=== PATIENT | male | born 1970 | race African-American/Black ===

== ENCOUNTER → 2022-02-27 | Outpatient (CLI) | payer OTHER ==
[2022-02-27 12:30] LABS: Basophils % (auto) 0.5 % (0.0-2.0); Eosinophils # (auto) 0.2 10 ^3/uL (0-0.8); Mean Corpuscular Hemoglobin 21.3 pg (28.0-32.0); Monocytes # (auto) 0.8 10 ^3/uL (0-1.3); Neutrophils % (auto) 52.8 % (37.0-80.0)
[2022-02-27 12:31] LABS: Basophils # (auto) 0 10 ^3/uL (0-0.2); Eosinophils % (auto) 1.9 % (0.0-7.0); Hemoglobin 13.8 g/dL (13.5-17.5); Lymphocytes # (auto) 3.5 10 ^3/uL (0.4-5.4); Lymphocytes % (auto) 36.3 % (10.0-50.0); Mean Corpuscular Hgb Conc. 30.6 g/dL (32.0-36.0); Mean Corpuscular Volume 69.8 fL (80.0-100.0); Monocytes % (auto) 8.5 % (0.0-12.0); Neutrophils # (auto) 5.1 10 ^3/uL (1.6-8.6); Nucleated Red Blood Cells % 0.1 %; Red Blood Cells 6.45 10^6/uL (4.5-5.90); White Blood Cell 9.6 10^3/uL (4.4-10.8)
[2022-02-27 13:30] LABS: Potassium 4.2 mmol/L (3.5-5.1)
[2022-02-27 13:34] LABS: Albumin 3.7 g/dL (3.4-5.0); BUN/Creatinine Ratio 10.6; Calcium 9.3 mg/dL (8.5-10.1)
[2022-02-27 13:37] LABS: Bilirubin, Total 0.7 mg/dL (0.2-1.0); Total Protein 7.5 g/dL (6.4-8.2)
== END | disposition home or self-care (01) ==
LOC: LAB 12:12
PROVIDERS: ATTEND Student in an Organized Health Care Education/Training Program
DX: Z00.00 Encounter for general adult medical examination without abnormal findings (principal); Z12.11 Encounter for screening for malignant neoplasm of colon; I10 Essential (primary) hypertension; R73.03 Prediabetes
CPT/HCPCS: 36415; 80053; 80061; 83036; 85025

== ENCOUNTER → 2022-03-12 | Outpatient (CLI) | payer OTHER | END | disposition home or self-care (01) | LOC: LAB 11:28 | PROVIDERS: ATTEND Student in an Organized Health Care Education/Training Program | DX: Z00.00 Encounter for general adult medical examination without abnormal findings (principal); Z12.11 Encounter for screening for malignant neoplasm of colon; I10 Essential (primary) hypertension; R73.03 Prediabetes | CPT/HCPCS: 82274 ==

== ENCOUNTER → 2022-09-11 | Outpatient (CLI) | payer OTHER ==
[2022-09-11 12:56] LABS: Calcium 8.9 mg/dL (8.5-10.1); Potassium 4.1 mmol/L (3.5-5.1)
[2022-09-11 12:58] LABS: BUN/Creatinine Ratio 11.4
== END | disposition home or self-care (01) ==
LOC: LAB 12:00
PROVIDERS: ATTEND Student in an Organized Health Care Education/Training Program
DX: E11.9 Type 2 diabetes mellitus without complications (principal); I10 Essential (primary) hypertension; E66.01 Morbid (severe) obesity due to excess calories
CPT/HCPCS: 36415; 80048; 82570; 83036

== ENCOUNTER → 2024-06-26 | Outpatient (CLI) | payer OTHER ==
[2024-06-26 15:01] LABS: Urine Bacteria None Seen /hpf (None Seen)
[2024-06-26 15:14] LABS: Basophils # (auto) 0.1 10 ^3/uL (0-0.2); Basophils % (auto) 0.8 % (0.0-2.0); Hemoglobin 14.8 g/dL (13.5-17.5); Neutrophils # (auto) 3.9 10 ^3/uL (1.6-8.6); Neutrophils % (auto) 47.9 % (37.0-80.0); Nucleated Red Blood Cells % 0.1 %; White Blood Cell 8.1 10^3/uL (4.4-10.8)
[2024-06-26 15:16] LABS: Eosinophils # (auto) 0.1 10 ^3/uL (0-0.8); Eosinophils % (auto) 1.8 % (0.0-7.0); Lymphocytes # (auto) 3.4 10 ^3/uL (0.4-5.4); Lymphocytes % (auto) 41.6 % (10.0-50.0); Mean Corpuscular Hemoglobin 22.4 pg (28.0-32.0); Mean Corpuscular Hgb Conc. 32.1 g/dL (32.0-36.0); Mean Corpuscular Volume 69.6 fL (80.0-100.0); Monocytes # (auto) 0.6 10 ^3/uL (0-1.3); Monocytes % (auto) 7.9 % (0.0-12.0); Platelet Count (auto) 238 10^3/uL (140-450); Red Blood Cells 6.61 10^6/uL (4.5-5.90); Red Cell Distribution Width 13.8 % (11.8-14.3)
[2024-06-26 15:24] LABS: Urine Blood TRACE /uL (Negative); Urine Clarity Clear (Clear); Urine Color Light-Yellow (Yellow); Urine Mucus FEW (None Seen); Urine Protein, UAD Negative (Negative); Urine Specific Gravity 1.016 (1.001-1.035); Urine Urobilinogen Normal (Negative); Urine WBC <1 /hpf (0 - 3); Urine pH 5.5 (5.0-9.0)
[2024-06-26 15:26] LABS: Prostate Specific Antigen 1.18 ng/mL (0.0-4.0)
[2024-06-26 15:28] LABS: Alanine Aminotransferase 19 U/L (7-40); Albumin 4.5 g/dL (3.2-4.8); Alkaline Phosphatase 96 U/L (46-116); Anion Gap 8 (5-15); Aspartate Aminotransferase 25 U/L (13-40); Blood Urea Nitrogen 12 mg/dL (9-23); Calcium 10.2 mg/dL (8.7-10.4); Carbon Dioxide 27 mmol/L (20-31); Cholesterol 169 mg/dL (< 200); Glucose 105 mg/dL (74-106); HDL Cholesterol 49 mg/dL (40-59); Potassium 4.1 mmol/L (3.5-5.1); Sodium 144 mmol/L (136-145); Triglycerides 51 mg/dL (< 150)
[2024-06-26 15:29] LABS: Bilirubin, Total 0.8 mg/dL (0.2-1.0); Chloride 109 mmol/L (98-107); LDL Cholesterol 111 mg/dL (< 100); Total Protein 7.7 g/dL (5.7-8.2)
[2024-06-26 15:42] LABS: Creatinine, Urine 131.99 mg/dL (30.0-125.0)
[2024-06-27 11:06] LABS: RPR Non Reactive (Non Reactive)
== END | disposition home or self-care (01) ==
LOC: LAB 14:36
DX: Z12.5 Encounter for screening for malignant neoplasm of prostate (principal); Z12.11 Encounter for screening for malignant neoplasm of colon; Z11.3 Encounter for screening for infections with a predominantly sexual mode of transmission; I10 Essential (primary) hypertension; E11.9 Type 2 diabetes mellitus without complications; E55.9 Vitamin D deficiency, unspecified; K92.1 Melena; E78.5 Hyperlipidemia, unspecified
CPT/HCPCS: 36415; 80053; 80061; 80074; 81001; 82043; 82306; 82570; 82607; 83036; 84153; 84443; 85025; 86592; 86703; 86704; 86706; 86708; 86803; 87340

== ENCOUNTER → 2024-09-28 | Outpatient (CLI) | payer OTHER ==
[2024-09-28 11:47] LABS: Basophils # (auto) 0.1 10 ^3/uL (0-0.2); Eosinophils # (auto) 0.2 10 ^3/uL (0-0.8); Eosinophils % (auto) 1.9 % (0.0-7.0); Monocytes # (auto) 0.6 10 ^3/uL (0-1.3); Neutrophils # (auto) 4.9 10 ^3/uL (1.6-8.6)
[2024-09-28 11:49] LABS: Basophils % (auto) 1.1 % (0.0-2.0); Hematocrit 42.8 % (41.0-53.0); Hemoglobin 13.9 g/dL (13.5-17.5); Lymphocytes # (auto) 2.7 10 ^3/uL (0.4-5.4); Lymphocytes % (auto) 31.7 % (10.0-50.0); Mean Corpuscular Hemoglobin 22.7 pg (28.0-32.0); Mean Corpuscular Hgb Conc. 32.4 g/dL (32.0-36.0); Mean Corpuscular Volume 70.1 fL (80.0-100.0); Monocytes % (auto) 6.8 % (0.0-12.0); Neutrophils % (auto) 58.5 % (37.0-80.0); Nucleated Red Blood Cells % 0.2 %; Platelet Count (auto) 232 10^3/uL (140-450); Red Blood Cells 6.11 10^6/uL (4.5-5.90); Red Cell Distribution Width 13.5 % (11.8-14.3); White Blood Cell 8.4 10^3/uL (4.4-10.8)
[2024-09-28 11:53] LABS: Alanine Aminotransferase 21 U/L (7-40); Albumin 4.6 g/dL (3.2-4.8); Alkaline Phosphatase 87 U/L (46-116); Anion Gap 7 (5-15); Aspartate Aminotransferase 18 U/L (13-40); BUN/Creatinine Ratio 9.6 (10.0-20.0); Blood Urea Nitrogen 10 mg/dL (9-23); Calcium 9.9 mg/dL (8.7-10.4); Carbon Dioxide 27 mmol/L (20-31); Cholesterol 148 mg/dL (< 200); HDL Cholesterol 43 mg/dL (40-59); LDL Cholesterol 100 mg/dL (< 100); Potassium 4.2 mmol/L (3.5-5.1); Sodium 141 mmol/L (136-145); Total Protein 7.6 g/dL (5.7-8.2); Triglycerides 33 mg/dL (< 150)
[2024-09-28 11:54] LABS: % Iron Saturation 37.6 % (20-55); Bilirubin, Total 0.9 mg/dL (0.2-1.0)
[2024-09-28 12:06] LABS: Urine Blood Negative /uL (Negative); Urine Clarity Clear (Clear); Urine Color Light-Yellow (Yellow); Urine Protein, UAD Negative (Negative); Urine Specific Gravity 1.016 (1.001-1.035); Urine Urobilinogen Normal (Negative); Urine pH 5.5 (5.0-9.0)
[2024-09-28 12:07] LABS: Chloride 107 mmol/L (98-107); Glucose 131 mg/dL (74-106)
== END | disposition home or self-care (01) ==
LOC: LAB 11:09
PROVIDERS: ATTEND Nurse Practitioner Family
DX: E11.9 Type 2 diabetes mellitus without complications (principal); E55.9 Vitamin D deficiency, unspecified; E78.5 Hyperlipidemia, unspecified; D50.9 Iron deficiency anemia, unspecified
CPT/HCPCS: 36415; 80053; 80061; 81003; 82306; 82728; 83036; 83540; 83550; 84443; 85025

== ENCOUNTER → 2025-01-12 | Outpatient (CLI) | payer OTHER ==
[2025-01-12 13:08] LABS: Nucleated Red Blood Cells % 0.1 %; Urine Protein, UAD Negative (Negative)
[2025-01-12 13:10] LABS: Hematocrit 44.4 % (41.0-53.0); Hemoglobin 14.2 g/dL (13.5-17.5); Mean Corpuscular Hemoglobin 22.2 pg (28.0-32.0); Mean Corpuscular Volume 69.6 fL (80.0-100.0)
[2025-01-12 13:53] LABS: Alanine Aminotransferase 10 U/L (7-40); Albumin 4.4 g/dL (3.2-4.8); Alkaline Phosphatase 76 U/L (46-116); Anion Gap 8 (5-15); BUN/Creatinine Ratio 8.8 (10.0-20.0); Blood Urea Nitrogen 9 mg/dL (9-23); Calcium 9.8 mg/dL (8.7-10.4); Carbon Dioxide 26 mmol/L (20-31); Microalb/Creat Ratio, Urine 23.0; Potassium 4.1 mmol/L (3.5-5.1); Sodium 144 mmol/L (136-145); Total Protein 7.1 g/dL (5.7-8.2); Triglycerides 34 mg/dL (< 150)
[2025-01-12 13:54] LABS: Bilirubin, Total 0.8 mg/dL (0.2-1.0); Chloride 110 mmol/L (98-107); Cholesterol 141 mg/dL (< 200); Glucose 111 mg/dL (74-106); HDL Cholesterol 41 mg/dL (40-59)
== END | disposition home or self-care (01) ==
LOC: LAB 12:48
PROVIDERS: ATTEND Nurse Practitioner Family
DX: I10 Essential (primary) hypertension (principal); E78.5 Hyperlipidemia, unspecified; E55.9 Vitamin D deficiency, unspecified; D64.9 Anemia, unspecified
CPT/HCPCS: 36415; 80053; 80061; 81003; 82043; 82306; 82570; 83036; 84443; 85025

== ENCOUNTER 2025-03-16 08:48 | Day surgery (SDC) | payer OTHER ==
[2025-03-14 09:10] LABS: Mean Corpuscular Hemoglobin 22.3 pg (28.0-32.0)
[2025-03-14 09:12] LABS: Hematocrit 43.6 % (41.0-53.0); Hemoglobin 14.0 g/dL (13.5-17.5); Mean Corpuscular Volume 69.5 fL (80.0-100.0); Nucleated Red Blood Cells % 0.1 %
[2025-03-14 09:24] LABS: Alanine Aminotransferase 13 U/L (7-40); Albumin 4.3 g/dL (3.2-4.8); Alkaline Phosphatase 82 U/L (46-116); Anion Gap 9 (5-15); BUN/Creatinine Ratio 9.3 (10.0-20.0); Bilirubin, Total 1.0 mg/dL (0.2-1.0); Blood Urea Nitrogen 10 mg/dL (9-23); Calcium 9.2 mg/dL (8.7-10.4); Carbon Dioxide 27 mmol/L (20-31); Potassium 4.1 mmol/L (3.5-5.1); Sodium 143 mmol/L (136-145); Total Protein 7.6 g/dL (5.7-8.2); Urine Protein, UAD Negative (Negative)
[2025-03-14 09:25] LABS: Chloride 107 mmol/L (98-107); Glucose 132 mg/dL (74-106)
[2025-03-14 09:43] LABS: INR 1.02 (0.9-1.15); Partial Thromboplastin Time 28.1 SEC (24.5-34.5); Prothrombin Time 10.8 sec (9.3-11.8)
[~2025-03-16] VITALS: Ht 175.3 cm; Wt 113.4 kg
[~2025-03-16 08:48] MED LIST: AMLO1TAB22 PO; ATOR20TA PO; LOSA-534 PO
[2025-03-16] MEDS ORDERED: SODIUM CHLORIDE LOCK 10 ML ONE (10:09)
[2025-03-16] MEDS ORDERED: PROPOFOL 10 MG/ML 20 ML IV ONE (10:09)
[2025-03-16] MEDS ORDERED: fentaNYL CITRATE 100 MCG/2 ML VL ONE (10:09)
[2025-03-16] MEDS ORDERED: ONDANSETRON HCL 4 MG/2 ML VIAL ONE (10:09)
[2025-03-16] MEDS ORDERED: KETAMINE 50mg/ML 1ml syringe ONE (10:09)
[2025-03-16] MEDS ORDERED: MIDAZOLAM HCL 2MG/2ML 2ml VIAL (1mg/ml) ONE (10:09)
[2025-03-16 11:28] VITALS: PULSE 105; RESP 18; TEMP 99; O2SAT 100
--- NOTE | 2025-03-16 11:35 | DVHOP2 ---
Operative Report DATE OF OPERATION: 03/16/25 PROCEDURE: Colonoscopy with hot snare polypectomy. PREOPERATIVE INDICATION: The patient is a 54 -year-old male undergoing colonoscopy for colon cancer screening with history of rectal bleeding POSTOPERATIVE DIAGNOSES: 1. Patient had a 5-6 mm benign-appearing ascending colon polyp that was seen and removed by hot snare polypectomy 2. Mild tortuosity of the colon especially involving the splenic flexure and the transverse colon area 3. One to 2+ slightly engorged internal hemorrhoids otherwise normal examination up to the cecum PROCEDURE PERFORMED BY: Lola Fontana M.D. SCOPE: Olympus videocolonoscope. ASA CLASS: 2 PREOPERATIVE MEDICATIONS: Mac sedation, Dr. Mendoza PROCEDURE IN DETAIL: After obtaining an informed consent, the patient was placed on left lateral decubitus position. He was then sedated with the above medications. A rectal examination was performed that was normal. The colonoscope was then passed through the anus into the rectosigmoid and through the descending, transverse, and ascending colon up to the cecum with visualization of the appendiceal orifice, base of the cecum and the ileocecal valve. The colonoscope was then withdrawn. No masses or colitis or clear-cut diverticular disease were seen The patient had a 5-6 mm benign-appearing proximal ascending colon polyp that was seen and removed by hot snare polypectomy and the specimens were retrieved No other polyps or masses were seen. Patient had mild tortuosity and redundancy of the colon especially involving the transverse colon and the splenic flexure On retroflexion and straight on view patient had one to 2+ slightly engorged internal hemorrhoids which could be the likely source of bleeding The patient tolerated the procedure well without difficulty. WITHDRAWAL TIME: 8 minutes QUALITY OF THE PREP: [place] Bowel Prep score: 9. COMPLICATIONS : None SPECIMENS: Ascending colon polyp DISPOSITION: Stable D/C to home PLAN: 1. Repeat colonoscopy base on biopsy result likely in 3-5 years 2. Resume GI soft diet advance as tolerated 3. Increase fluid and fiber intake 4. Local anorectal hemorrhoidal care 5. Outpatient follow up with me in 4-6 weeks to review results and discuss further management LOLA FONTANA MD Mar 16, 2025 11:35
[2025-03-16 11:58] VITALS: BP 150/88; PULSE 93; RESP 14; O2SAT 95
== END 2025-03-16 12:20 | disposition home or self-care (01) ==
LOC: GI 08:48
PROVIDERS: ATTEND Internal Medicine Gastroenterology
DX: K92.1 Melena (principal); K64.8 Other hemorrhoids
CPT/HCPCS: 36415; 45385; 80053; 81001; 85025; 85610; 85730; 88305; J2250; J2405; J2704; J3010; J7030

== ENCOUNTER 2025-05-22 08:04 | Outpatient (CLI) | payer OTHER ==
[2025-05-22 08:35] LABS: Urine Protein, UAD Negative (Negative)
[2025-05-22 08:36] LABS: Hematocrit 42.4 % (41.0-53.0); Mean Corpuscular Hemoglobin 22.3 pg (28.0-32.0)
[2025-05-22 08:39] LABS: Hemoglobin 13.5 g/dL (13.5-17.5); Mean Corpuscular Volume 70.3 fL (80.0-100.0); Nucleated Red Blood Cells % 0.2 %
[2025-05-22 08:51] LABS: Iron 100.0 ug/dL (65-175)
[2025-05-22 08:53] LABS: Prostate Specific Antigen 2.0 ng/mL (0.0-4.0)
[2025-05-22 08:55] LABS: Alanine Aminotransferase 14 U/L (7-40); Albumin 4.2 g/dL (3.2-4.8); Alkaline Phosphatase 75 U/L (46-116); Anion Gap 9 (5-15); BUN/Creatinine Ratio 7.9 (10.0-20.0); Bilirubin, Total 0.8 mg/dL (0.2-1.0); Calcium 9.3 mg/dL (8.7-10.4); Carbon Dioxide 30 mmol/L (20-31); Chloride 106 mmol/L (98-107); Potassium 4.2 mmol/L (3.5-5.1); Total Iron Binding Capacity 274.0 ug/dL (250-425); Total Protein 7.2 g/dL (5.7-8.2)
[2025-05-22 09:07] LABS: Blood Urea Nitrogen 8 mg/dL (9-23); Glucose 132 mg/dL (74-106); Sodium 145 mmol/L (136-145)
[2025-05-22 09:17] LABS: Triglycerides 41 mg/dL (< 150)
[2025-05-22 09:19] LABS: HDL Cholesterol 43 mg/dL (40-59)
[2025-05-22 09:20] LABS: Cholesterol 153 mg/dL (< 200)
[2025-05-22 10:16] LABS: Microalb/Creat Ratio, Urine 38.0
== END 2025-05-22 17:00 | disposition home or self-care (01) ==
LOC: LAB 08:04
PROVIDERS: ATTEND Nurse Practitioner Family
DX: E11.9 Type 2 diabetes mellitus without complications (principal); E78.5 Hyperlipidemia, unspecified; E55.9 Vitamin D deficiency, unspecified; D64.9 Anemia, unspecified; Z12.5 Encounter for screening for malignant neoplasm of prostate; Z79.899 Other long term (current) drug therapy
CPT/HCPCS: 36415; 80053; 80061; 81001; 82043; 82306; 82570; 82607; 82746; 83036; 83540; 83550; 84153; 84443; 85025